=== PATIENT | female | born 1980 | race Hispanic/Latino ===

== ENCOUNTER 2017-03-26 00:47 | Observation (INO) | payer BC ==
--- NOTE | 2017-03-26 01:50 | ED PDOC ---
HPI: Psych/Substance Abuse Time Seen by Provider: 03/26/17 00:56 Chief Complaint (Nursing): Alcohol Ingestion Chief Complaint (Provider): alcohol intoxication ED Caveat: Intoxicated History Per: Patient History/Exam Limitations: intoxication Onset/Duration Of Symptoms: Mins Current Symptoms Are (Timing): Still Present Additional Complaint(s): 36yo female presents to the ED for evaluation of alcohol intoxication. Patient found publicly intoxicated. Hx limited due to patient's intoxicated state. Patient denies any medical or psychiatric complaints. Past Medical History Reviewed: Historical Data, Nursing Documentation, Vital Signs, Unable To Obtain (due to intoxication ) Vital Signs: Last Vital Signs Temp 98.1 F 03/26/17 00:53 Pulse 88 03/26/17 00:53 Resp 18 03/26/17 00:53 BP 115/70 03/26/17 00:53 Pulse Ox 99 03/26/17 00:53 - Family History Family History: States: Unknown Family Hx - Immunization History Hx Tetanus Toxoid Vaccination: No Hx Influenza Vaccination: No Hx Pneumococcal Vaccination: No - Home Medications Home Medications: Ambulatory Orders Medication Instructions Recorded traMADol [Ultram] 50 mg PO Q6H PRN #15 tab 06/08/16 - Allergies Allergies/Adverse Reactions: Allergies Allergy/AdvReac Type Severity Reaction Status Date / Time No Known Allergies Allergy Unverified 05/19/15 04:24 Review of Systems Review Of Systems: ROS cannot be obtained secondary to pt's inabilty to answer questions. (due to intoxication) Physical Exam - Reviewed Nursing Documentation Reviewed: Yes Vital Signs Reviewed: Yes - Physical Exam Appears: Positive for: Well, No Acute Distress Head Exam: Positive for: ATRAUMATIC, NORMAL INSPECTION, NORMOCEPHALIC Skin: Positive for: Normal Color, Warm, Dry Eye Exam: Positive for: Normal appearance ENT: Positive for: Normal ENT Inspection Neck: Positive for: Normal, Painless ROM, Supple Cardiovascular/Chest: Positive for: Regular Rate, Rhythm. Negative for: Tachycardia Respiratory: Positive for: Normal Breath Sounds. Negative for: Respiratory Distress Gastrointestinal/Abdominal: Positive for: Normal Exam, Soft. Negative for: Tenderness Back: Positive for: Normal Inspection Extremity: Positive for: Normal ROM. Negative for: Deformity, Swelling Neurologic/Psych: Positive for: Alert, Oriented (to person only ), Other ( slurred speech ) - ECG O2 Sat by Pulse Oximetry: 99 Pulse Ox Interpretation: Normal (RA) - Critical Care Total Time (In Min): 30 Medical Decision Making Medical Decision Makin: Impression: 36yo intoxicated female Plan: alc serum, drug screen urine preg/dip accucheck reassess Patient s/o to Dr. Milton at 0700 pending sobriety and re-eval. Scribe Attestation: Documented by Prudencio Valdes acting as a scribe for Gt Lawrence MD. Provider Scribe Attestation: All medical record entries made by the Scribe were at my direction and personally dictated by me. I have reviewed the chart and agree that the record accurately reflects my personal performance of the history, physical exam, medical decision making, and the department course for this patient. I have also personally directed, reviewed, and agree with the discharge instructions and disposition. ED OBSERVATION Date of observation admission: 03/26/17 Time of observation admission: 03:30 - Observation admission statement Patient is being placed in observation because:: alcohol intoxication - Goals of Observation Goals of observation are:: pending clinical sobriety Disposition - Clinical Impression Clinical Impression: Alcohol abuse with intoxication - Patient ED Disposition Is Patient to be Admitted: Transfer of Care - Disposition Disposition: Transfer of Care Disposition Time: 03:30 Condition: STABLE Patient Signed Over To: Alfred Milton Handoff Comments: pending sobriety and re-eval
[2017-03-26 06:42] VITALS: TEMP 97.9
--- NOTE | 2017-03-26 07:16 | ED PDOC ---
- ECG O2 Sat by Pulse Oximetry: 99 Pulse Ox Interpretation: Normal - Progress ED Course And Treament: 907: Stable. AAOx3. Feels better. Tolerated PO. Ambulated with no issues. Fu with pcp. Medical Decision Making Medical Decision Making: Time: 0700 Patient signed out by Dr[address] Lawrence pending sobriety and re-evaluation Scribe Attestation: Documented by Sara Miner acting as a scribe for Trish Milton MD MD Scribe Attestation: All medical record entries made by the Scribe were at my direction and personally dictated by me. I have reviewed the chart and agree that the record accurately reflects my personal performance of the history, physical exam, medical decision making, and the department course for this patient. I have also personally directed, reviewed, and agree with the discharge instructions and disposition. Disposition - Clinical Impression Clinical Impression: Alcohol abuse with intoxication - POA Present On Arrival: None - Disposition Disposition: Routine/Home Disposition Time: 09:09 Condition: STABLE
[2017-03-26 09:57] VITALS: PULSE 88; RESP 18; O2SAT 98
[2017-03-26 10:32] VITALS: BP 99/64
== END 2017-03-26 09:52 | disposition home or self-care (01) ==
LOC: H.ER 00:47 → H.EROBSV 03:30
PROVIDERS: ADMIT Emergency Medicine; ATTEND Emergency Medicine
DX: F10.129 Alcohol abuse with intoxication, unspecified (principal); Y90.8 Blood alcohol level of 240 mg/100 ml or more
CPT/HCPCS: 96372; 99283; G0378; G0480; J1630; J2060